=== PATIENT | female | born 1975 | race African-American/Black ===

== ENCOUNTER 2016-09-11 09:41 | Emergency (ER) | payer MEDICAID, OTHER ==
[~2016-09-11] VITALS: Ht 162.6 cm; Wt 59.0 kg
[~2016-09-11 09:41] MED LIST: ALEVE; CEPH250C2; TUMS
[2016-09-11] MEDS ORDERED: ONDANSETRON HCL 4MG/2ML VIAL IV STA (09:59)
[2016-09-11] MEDS ORDERED: FAMOTIDINE 20MG/2ML VIAL IV STA (09:59)
[2016-09-11] MEDS ORDERED: MORPHINE SULFATE 4 MG/ML CPJ (NOT FOR IM USE) IV STA (09:59)
[2016-09-11] MEDS ORDERED: SODIUM CHLORIDE 0.9% 1000ML BAG (SEPSIS BOLUS) IV ONE (10:00)
[2016-09-11 10:31] LABS: CHLORIDE 108 mEq/L (98-107)
[2016-09-11 10:34] LABS: PARTIAL THROMBOPLASTIN TIME 21.5 sec (24.0-34.0); PROTHROMBIN TIME 10.7 sec
[2016-09-11 10:40] LABS: CARBON DIOXIDE 22 mEq/L (21-32)
[2016-09-11 10:46] LABS: BASOPHILS % 0.7 % (0.0-2.0); EOSINOPHILS % 0.1 % (0.0-5.0); HEMATOCRIT. 33.6 % (36.0-48.0); HEMOGLOBIN. 11.2 g/dL (12.0-16.0); LYMPHOCYTES % 12.3 % (20.0-50.0); MEAN CORPUSCULAR HEMOGLOBIN 30.1 pg (28.0-32.0); MEAN CORPUSCULAR VOLUME 90.2 fL (81.0-99.0); MEAN PLATELET VOLUME 8.3 fl (7.4-10.4); MONOCYTES % 3.6 % (2.0-8.0); NEUTROPHILS % 83.3 % (40.0-76.0); PLATELET 274 x1000/uL (130-400); RED BLOOD CELL COUNT 3.73 mill/uL (4.2-5.4); RED CELL DISTRIBUTION WIDTH 13.3 % (11.6-14.6)
[2016-09-11] MEDS ORDERED: SODIUM CHLORIDE 0.9% 1,000 ML IV ONE (10:49)
[2016-09-11 10:52] LABS: HCG SCREEN NEGATIVE
[2016-09-11 12:15] LABS: CLARITY URINE CLEAR (CLEAR); COLOR URINE YELLOW (YELLOW); GLUCOSE URINE NEGATIVE (NEGATIVE); KETONES URINE TRACE (NEGATIVE); LEUKOCYTE ESTERASE URINE NEGATIVE (NEGATIVE); NITRITE URINE NEGATIVE (NEGATIVE); OCCULT BLOOD URINE 3+ (NEGATIVE); PROTEIN URINE TRACE (NEGATIVE); SPECIFIC GRAVITY URINE 1.021 (1.005-1.030); UROBILINOGEN URINE 0.2 E.U./dL (0.2-1.0)
[2016-09-11] MEDS ORDERED: SODIUM CHLORIDE 0.9% 10ML VIAL ONE (13:09)
[2016-09-11] MEDS ORDERED: IOHEXOL-300 100 ML BOTTLE ONE (13:09)
[2016-09-11] MEDS ORDERED: POTASSIUM CHLORIDE 20MEQ TABLET SR PO ONE (13:45)
[2016-09-11 15:12] VITALS: BP 112/54
== END 2016-09-11 15:12 | disposition home or self-care (01) ==
LOC: ER 09:44
DX: E87.6 Hypokalemia (principal); R19.7 Diarrhea, unspecified; R11.2 Nausea with vomiting, unspecified; F12.10 Cannabis abuse, uncomplicated; F17.200 Nicotine dependence, unspecified, uncomplicated; Z87.442 Personal history of urinary calculi
CPT/HCPCS: 36415; 74022; 74177; 80053; 81001; 82962; 83690; 84703; 85025; 85610; 85730; 87086; 96361; 96374; 96375; 99285; A4216; J2270; J2405; J3490; J7030; Q9967; Z7610

== ENCOUNTER 2017-07-16 12:48 | Emergency (ER) | payer MEDICAID, OTHER ==
[~2017-07-16] VITALS: Ht 157.5 cm; Wt 59.0 kg
[2017-07-16] MEDS ORDERED: MORPHINE SULFATE 4 MG/ML CPJ (NOT FOR IM USE) IV STA (13:20)
[2017-07-16] MEDS ORDERED: SODIUM CHLORIDE 0.9% 1,000 ML IV ONE (13:20)
[2017-07-16] MEDS ORDERED: KETOROLAC 30MG/ML VIAL IV STA (13:20)
[2017-07-16] MEDS ORDERED: ONDANSETRON HCL 4MG/2ML VIAL IV STA (13:20)
[2017-07-16 13:38] LABS: CLARITY URINE CLEAR (CLEAR); COLOR URINE YELLOW (YELLOW); KETONES URINE 4+ (NEGATIVE); LEUKOCYTE ESTERASE URINE 1+ (NEGATIVE); NITRITE URINE NEGATIVE (NEGATIVE); OCCULT BLOOD URINE 3+ (NEGATIVE); PROTEIN URINE 1+ (NEGATIVE); SPECIFIC GRAVITY URINE 1.018 (1.005-1.030)
[2017-07-16 14:01] LABS: *AMPHETAMINES SCREEN URINE NEGATIVE (NEGATIVE); *BARBITURATES SCREEN URINE NEGATIVE (NEGATIVE); *BENZODIAZEPINES SCREEN URINE NEGATIVE (NEGATIVE); *COCAINE SCREEN URINE NEGATIVE (NEGATIVE); METHADONE URINE SCREEN NEGATIVE (NEGATIVE); OPIATES URINE SCREEN NEGATIVE (NEGATIVE)
[2017-07-16 14:02] LABS: PHENCYCLIDINE URINE SCREEN NEGATIVE (NEGATIVE)
[2017-07-16 14:45] LABS: HEMATOCRIT. 33.6 % (36.0-48.0); HEMOGLOBIN. 11.4 g/dL (12.0-16.0); MEAN CORPUSCULAR HEMOGLOBIN 30.9 pg (28.0-32.0); MEAN CORPUSCULAR VOLUME 91.1 fL (81.0-99.0); MEAN PLATELET VOLUME 8.2 fl (7.4-10.4); PLATELET 318 x1000/uL (130-400); RED BLOOD CELL COUNT 3.69 mill/uL (4.2-5.4); RED CELL DISTRIBUTION WIDTH 13.2 % (11.6-14.6)
[2017-07-16 14:50] LABS: CHLORIDE 111 mEq/L (98-107)
[2017-07-16 14:50] LABS: CANNABINOID URINE SCREEN PRESUMTIVE POSITIVE (NEGATIVE)
[2017-07-16 14:53] LABS: HCG SCREEN NEGATIVE
[2017-07-16 14:55] LABS: INR 1.1
[2017-07-16 15:27] LABS: ETHANOL BLOOD < 10 mg/dL
[2017-07-16 15:28] LABS: PLATELET ESTIMATE NORMAL
[2017-07-16] MEDS ORDERED: CEFTRIAXONE 1 G PREMIX 50 ML IV ONE (15:45)
[2017-07-16] MEDS ORDERED: LEVOFLOXACIN 250MG TABLET PO ONE (16:00)
[2017-07-16 16:15] VITALS: BP 129/79
== END 2017-07-16 16:28 | disposition home or self-care (01) ==
LOC: ER 13:08
DX: N12 Tubulo-interstitial nephritis, not specified as acute or chronic (principal); F17.200 Nicotine dependence, unspecified, uncomplicated; F12.10 Cannabis abuse, uncomplicated; Z87.442 Personal history of urinary calculi; Z98.890 Other specified postprocedural states
CPT/HCPCS: 36415; 71045; 74176; 80053; 80305; 81003; 83605; 83690; 84703; 85025; 85610; 87040; 93005; 96361; 96365; 96375; 99285; G0482; J0696; J1885; J2270; J2405; J7030

== ENCOUNTER 2020-07-22 14:44 | Emergency (ER) | payer MEDICAID, OTHER ==
[~2020-07-22] VITALS: Ht 154.9 cm; Wt 66.0 kg
[2020-07-22] MEDS ORDERED: LACTATED RINGERS 1,000 ML IV SCH (15:45)
[2020-07-22] MEDS ORDERED: METOCLOPRAMIDE HCL 10MG/2ML VIAL IV ONE (15:45)
[2020-07-22] MEDS ORDERED: HALOPERIDOL LACTATE 5MG/ML VIAL IM NR (16:30)
[2020-07-22 16:41] LABS: HEMATOCRIT. 38.3 % (36.0-48.0); MEAN CORPUSCULAR HEMOGLOBIN 31.8 pg (28.0-32.0); MEAN PLATELET VOLUME 8.1 fl (7.4-10.4); PLATELET 341 x1000/uL (130-400); RED BLOOD CELL COUNT 4.07 mill/uL (4.2-5.4); RED CELL DISTRIBUTION WIDTH 12.8 % (11.6-14.6)
[2020-07-22 16:47] LABS: CHLORIDE 109 mEq/L (98-107)
[2020-07-22 16:51] LABS: ETHANOL BLOOD < 10 mg/dL
[2020-07-22 17:02] LABS: HCG SCREEN NEGATIVE
[2020-07-22 18:11] LABS: CLARITY URINE CLOUDY (CLEAR); COLOR URINE YELLOW (YELLOW); KETONES URINE 3+ (NEGATIVE); LEUKOCYTE ESTERASE URINE NEGATIVE (NEGATIVE); NITRITE URINE NEGATIVE (NEGATIVE); OCCULT BLOOD URINE NEGATIVE (NEGATIVE); PH URINE >=9.0 (4.5-8.0); PROTEIN URINE TRACE (NEGATIVE); SPECIFIC GRAVITY URINE 1.021 (1.005-1.030); UROBILINOGEN URINE 0.2 E.U./dL (0.2-1.0)
[2020-07-22 18:24] LABS: *AMPHETAMINES SCREEN URINE NEGATIVE (NEGATIVE); *BARBITURATES SCREEN URINE NEGATIVE (NEGATIVE); *BENZODIAZEPINES SCREEN URINE NEGATIVE (NEGATIVE); *COCAINE SCREEN URINE NEGATIVE (NEGATIVE); METHADONE URINE SCREEN NEGATIVE (NEGATIVE); OPIATES URINE SCREEN NEGATIVE (NEGATIVE); PHENCYCLIDINE URINE SCREEN NEGATIVE (NEGATIVE)
[2020-07-22 18:27] LABS: CANNABINOID URINE SCREEN PRESUMTIVE POSITIVE (NEGATIVE)
[2020-07-22 18:55] LABS: PLATELET ESTIMATE NORMAL
[2020-07-22 22:20] VITALS: BP 138/62
== END 2020-07-23 00:07 | disposition home or self-care (01) ==
LOC: ER 14:44
DX: R11.10 Vomiting, unspecified (principal); R19.7 Diarrhea, unspecified; Z87.19 Personal history of other diseases of the digestive system; Z98.890 Other specified postprocedural states; F12.10 Cannabis abuse, uncomplicated
CPT/HCPCS: 36415; 80048; 80076; 80305; 80320; 81003; 84703; 85025; 93005; 96372; 96374; 99285; J1630; J2765; Z7610; G0480